=== PATIENT | male | born 1985 | race Caucasian/White ===

== ENCOUNTER 2020-05-27 10:48 | Emergency (ER) | payer BC, SELFPAY ==
--- NOTE | 2020-05-27 10:58 | ED.DENTAL ---
HPI - Dental/Oral General Chief complaint: Dental/Oral Stated complaint: Tooth Pain Time Seen by Provider: 05/27/20 10:58 Source: patient and RN notes reviewed History of Present Illness HPI Narrative: Patient is a 34-year-old male who presents the urgent care with complaints of lower right dental pain and swelling. Patient states that he broke the tooth months ago but it started hurting a few days ago. Patient states that he is use Tylenol and ibuprofen for the pain but now is having some right lower facial swelling and the pain has not improved. Denies of any fevers, nausea, vomiting. No other acute complaints. No acute distress noted. Patient aware of the plan of care. Some parts of this dictation were generated by voice recognition software and may contain typographical and/or grammatical inaccuracies. Related Data Allergies Allergy/AdvReac Type Severity Reaction Status Date / Time No Known Allergies Allergy Unverified 10/20/18 15:03 Review of Systems Review of Systems: Narrative: CONSTITUTIONAL: Denies fever, chills, or sweats. EYES: Denies visual changes, redness, or discharge. ENT: Reports of lower right dental pain and facial swelling CARDIOVASCULAR: Denies chest pain, palpitations, or edema. RESPIRATORY: Denies cough or dyspnea. GASTROINTESTINAL: Denies abdominal pain, nausea, vomiting, or diarrhea. GENITOURINARY: Denies dysuria or hematuria. SKIN: Denies rash or itching. MUSCULOSKELETAL: Denies back pain, joint pain, or myalgia. NEUROLOGIC: Denies headache, numbness, or weakness. All other systems reviewed are negative, except as documented in HPI. PMFSH Comments At the time of my signature, I reviewed and agree with the nursing past medical, surgical, social, and family history. There is no relevant family history pertinent to the patient complaint. Exam Narrative: Exam Narrative: GENERAL: This is a well-nourished, well-developed patient, in no apparent distress. HEAD: normocephalic, atraumatic. EYES: PERRL. Sclera clear/white. Vision is grossly intact. EARS: External ears normal, auditory canals clear and without drainage, TMs normal without perforation. Hearing grossly intact. NOSE: External nose normal with no obvious nasal discharge, nares without redness, no rhinorrhea. THROAT: Mucous membranes moist, posterior pharynx clear. Mild postnasal drainage DENTAL: Mild edema surrounding the first lower right molar, tooth #30 which shows an avulsed portion to the medial posterior aspect; mild lower right facial swelling NECK: Neck supple, non-tender without lymphadenopathy SKIN: warm, intact with no suspicious lesions or rash, good texture and turgor. NEURO: awake, alert, and oriented to person, place and time. There were no obvious focal neurologic abnormalities. EXTREMITIES: No clubbing, cyanosis, or edema. Course Vital Signs Vital signs: Vital Signs Temperature 97.8 F 05/27/20 10:59 Pulse Rate 82 05/27/20 10:59 Respiratory Rate 16 05/27/20 10:59 Blood Pressure 121/73 05/27/20 10:59 Pulse Oximetry 99 05/27/20 10:59 Temperature 97.8 F 05/27/20 10:59 Pulse Rate 82 05/27/20 10:59 Respiratory Rate 16 05/27/20 10:59 Blood Pressure 121/73 05/27/20 10:59 Pulse Oximetry 99 05/27/20 10:59 Reviewed MDM - Dental/Oral MDM Narrative Medical decision making narrative: Advised the patient to complete oral antibiotic regimen as prescribed. Make sure to eat and drink with medication. Use ice to the lower right face for swelling and comfort. Use ibuprofen/Tylenol as needed for pain. Be sure to rinse the mouth multiple times especially after eating. You will need to obtain a dentist appointment within the next 10 days. The tooth needs to be fixed or else infection will recur. Follow-up with your PCP/dentist within 2 to 5 days or for worsening symptoms or failure to improve. Differential Diagnosis Differential diagnosis: Likely gingival abscess, dental caries, toothache, dental absce
[2020-05-27 10:59] VITALS: BP 121/73; PULSE 82; RESP 16; TEMP 36.6; O2SAT 99
== END 2020-05-27 11:17 | disposition home or self-care (01) ==
PROVIDERS: Emergency Provider Nurse Practitioner Family
DX: K04.7 Periapical abscess without sinus (principal); S02.5XXA Fracture of tooth (traumatic), initial encounter for closed fracture; X58.XXXA Exposure to other specified factors, initial encounter; R01.1 Cardiac murmur, unspecified
CPT/HCPCS: 99213; G0463